=== PATIENT | male | born 1995 | race American Indian/Alaskan Native ===

== ENCOUNTER 2019-09-06 09:05 | Emergency (ER) | payer OTHER ==
[~2019-09-06] VITALS: Ht 180.3 cm; Wt 158.0 kg
[~2019-09-06 09:05] MED LIST: ANTI14DR3 OT
[2019-09-06 09:18] VITALS: BP 139/88
[2019-09-06] MEDS ORDERED: ketorolac tromethamine 15mg/ml inj. IM ONE (10:45)
[2019-09-06] MEDS ORDERED: orphenadrine citrate 60mg/2ml inj. IM ONE (10:45)
[2019-09-06] MEDS ORDERED: METH-360 PO (11:05)
[2019-09-06] MEDS ORDERED: NAPR-56 PO (11:05)
== END 2019-09-06 11:10 | disposition home or self-care (01) ==
LOC: ER 09:06
DX: S16.1XXA Strain of muscle, fascia and tendon at neck level, initial encounter (principal); E66.9 Obesity, unspecified; J45.909 Unspecified asthma, uncomplicated; V49.88XA Car occupant (driver) (passenger) injured in other specified transport accidents, initial encounter; Y93.89 Activity, other specified; Y92.413 State road as the place of occurrence of the external cause; Y99.9 Unspecified external cause status
CPT/HCPCS: 72125; 96372; 99284; J1885; J2360